=== PATIENT | female | born 1955 | race Caucasian/White ===

== ENCOUNTER → 2016-09-05 | Outpatient (CLI) | payer BC ==
[~2016-09-05] MED LIST: CELEBREX200 MG PO; COUMADIN5 MG PO; PROZAC10 MG PO; SYNTHROID137 MCG PO; WELLBUTRIN XL150 M1 PO; ZANTAC150 MG PO
[2016-09-05 16:26] LABS: BUN/CREATININE RATIO 21 (0-10)
== END ==
LOC: LAB 15:13
PROVIDERS: Family Medicine
DX: E83.52 Hypercalcemia (principal); Z91.041 Radiographic dye allergy status; Z88.2 Allergy status to sulfonamides; Z88.1 Allergy status to other antibiotic agents; Z91.040 Latex allergy status; Z88.5 Allergy status to narcotic agent
CPT/HCPCS: 36415; 80048